=== PATIENT | male | born 1990 | race Caucasian/White ===

== ENCOUNTER 2016-09-29 16:56 | Emergency (ER) | payer OTHER ==
[2016-09-29 17:49] VITALS: TEMP 97.9
[2016-09-29] MEDS ORDERED: PROPARACAINE 0.5% OPHTH DROPS 15 ML BTL RIGHT EYE STA (18:18)
[2016-09-29] MEDS ORDERED: ERYTHROMYCIN 5 MG/GM OPHTH OINT 3.5 GM TUBE RIGHT EYE STA (18:59)
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
[2016-09-29 19:21] VITALS: BP 109/52; PULSE 75; RESP 14
== END 2016-09-29 19:22 | disposition home or self-care (01) ==
LOC: EC 16:56
DX: T15.02XA Foreign body in cornea, left eye, initial encounter (principal); E11.9 Type 2 diabetes mellitus without complications; Z79.4 Long term (current) use of insulin; Z88.5 Allergy status to narcotic agent; Y92.69 Other specified industrial and construction area as the place of occurrence of the external cause; Y99.0 Civilian activity done for income or pay
CPT/HCPCS: 65220; 99283

== ENCOUNTER 2017-03-02 22:36 | Emergency (ER) | payer OTHER ==
[2017-03-02] MEDS ORDERED: PENICILLIN V POTASSIUM 250 MG TAB PO STA (23:33)
[2017-03-02] MEDS ORDERED: traMADol 50 MG TAB PO STA (23:33)
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
--- NOTE | 2017-03-03 01:03 | CT ---
EXAM: CT Maxillofacial Without Intravenous Contrast CLINICAL HISTORY: Reason: Pain TECHNIQUE: Axial computed tomography images of the face without intravenous contrast. CTDI is 57.40 mGy and DLP is 1012.70 mGy-cm. This CT exam was performed using one or more of the following dose reduction techniques: automated exposure control, adjustment of the mA and/or kV according to patient size, and/or use of iterative reconstruction technique. COMPARISON: None FINDINGS: Bones/joints: No acute fracture. Soft tissues: Unremarkable. Orbits: Unremarkable. Sinuses: Mild mucosal thickening involving the left maxillary sinus, which may represent sinus disease. The remaining paranasal sinuses and mastoid and mastoid air cells are clear. IMPRESSION: Mild mucosal thickening involving the left maxillary sinus, which may represent sinus disease. Otherwise, unremarkable examination.
--- NOTE | 2017-03-03 01:07 | CT ---
Age: 26 years Gender: Male History: Pain Exam: CT HEAD Without Contrast Technique more: CTDI is 57.4 mGy and DLP is 1012.7 mGy-cm. Technique more: This CT exam was performed using one or more of the following dose reduction techniques: automated exposure control, adjustment of the mA and/or kV according to patient size, and/or use of iterative reconstruction technique. Comparison: None FINDINGS: No intracranial hemorrhage, abnormal intra- or extra-axial collections or parenchymal lesions are seen. The shape and configuration of the cortical sulci, basal cisterns and ventricles are within normal limits. The luna-white differentiation is preserved. No evidence of mass effect, midline shift, or edema. The osseous structures are unremarkable. The visualized portions of the paranasal sinuses are clear. IMPRESSION: Normal non-contrast CT scan of the head.
[2017-03-03 01:27] VITALS: BP 124/59; PULSE 83; RESP 19; TEMP 97.7
== END 2017-03-03 01:43 | disposition home or self-care (01) ==
LOC: EC 22:36
DX: S03.2XXA Dislocation of tooth, initial encounter (principal); S09.90XA Unspecified injury of head, initial encounter; E11.9 Type 2 diabetes mellitus without complications; Z79.4 Long term (current) use of insulin; Z88.5 Allergy status to narcotic agent; Y04.8XXA Assault by other bodily force, initial encounter; Y92.89 Other specified places as the place of occurrence of the external cause
CPT/HCPCS: 70450; 70486; 99284

== ENCOUNTER 2018-01-14 22:54 | Emergency (ER) | payer OTHER ==
[2018-01-14 22:58] VITALS: BP 107/67; PULSE 52; RESP 18; TEMP 98.4
--- NOTE | 2018-01-14 23:38 | ED ---
Skin/Abscess/FB HPI - General Chief complaint: Skin/Abscess/Foreign Body Stated complaint: Poison Lucille Time Seen by Provider: 01/14/18 23:28 Source: patient Mode of arrival: ambulatory Limitations: no limitations - History of Present Illness Initial comments: 27-year-old male patient presents to the emergency department today for evaluation of poison lucille dermatitis. Patient states that he was out in the [facility] with his family members on Wednesday. States that on Wednesday he developed a blistering type rash to his bilateral ankles. States that it then spread to his right forearm and wrist. The patient states that he has been keeping the areas clean and dry however the blisters on his ankles have opened due to rubbing on his work boots. Patient states he does have diabetes and is concerned about infection. Patient is requesting something to speed the healing of the poison lucille dermatitis. He denies any fevers or chills with this. He denies any drainage of pus from the wounds. States that his family members have similar symptoms as they did go to the same area of the [facility]. Patient denies any recent shortness breath, chest pain, abdominal pain, nausea, vomiting, diarrhea, constipation, back pain, numbness, tingling, dizziness, weakness, hematuria, dysuria, urinary urgency, urinary frequency, headache, visual changes, or any other complaints. - Related Data Home Medications Medication Instructions Recorded Confirmed Insulin Glulisine [Apidra] See Protocol SQ AC-TID PRN 03/11/16 03/02/17 Insulin Glargine [Lantus] 34 unit SQ HS 03/02/17 03/02/17 Previous Rx's Medication Instructions Recorded Penicillin V Potassium [Pen Vee K] 500 mg PO QID #28 tab 03/03/17 traMADol HCl [Ultram] 50 mg PO Q6H PRN #20 tab 03/03/17 Allergies Allergy/AdvReac Type Severity Reaction Status Date / Time codeine AdvReac Nausea & Verified 01/14/18 22:58 Vomiting Review of Systems ROS Statement: Those systems with pertinent positive or pertinent negative responses have been documented in the HPI. ROS Other: All systems not noted in ROS Statement are negative. 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 Past Psychological History: No Psychological Hx Reported Smoking Status: Never smoker Past Alcohol Use History: Occasional Past Drug Use History: None Reported - Past Family History Mother Family Medical History: Diabetes Mellitus Father Family Medical History: Sleep Apnea/CPAP/BIPAP Additional Family Medical History / Comment(s): severe alberto at 12, hepatitis C General Exam Limitations: no limitations General appearance: alert, in no apparent distress, other (This is a well- developed, well-nourished adult male patient in no acute distress. Vital signs upon presentation are temperature 98.4F, pulse 52, respirations 18, blood pressure 107/67, pulse ox 98% on room air.) Eye exam: Present: normal appearance, PERRL, EOMI. Absent: scleral icterus, conjunctival injection, periorbital swelling ENT exam: Present: normal exam, normal oropharynx, mucous membranes moist Respiratory exam: Present: normal lung sounds bilaterally. Absent: respiratory distress, wheezes, rales, rhonchi, stridor Cardiovascular Exam: Present: regular rate, normal rhythm, normal heart sounds. Absent: systolic murmur, diastolic murmur, rubs, gallop, clicks Neurological exam: Present: alert, oriented X3, CN II-XII intact Psychiatric exam: Present: normal affect, normal mood Skin exam: Present: warm, dry, intact, normal color, rash (She has multiple scab lesions noted over his bilateral ankles. Multiple scab lesions over the right forearm. No evidence of blistering or drainage from the wounds. No surrounding erythema.) Course Vital Signs 01/14/18 22:55 Temperature 98.4 F Pulse Rate 52 L Respiratory 18 Rate Blood Pressure 107/67 O2 Sat by Pulse 98 Oximetry Medical Decision Making - Medical Decision Making 27-year-old male patient presents to the emergency department today for evaluation of what he feels to be poison lucille. Physical examination was performed and did show multiple scab lesions over his bilateral ankles and his right forearm. Patient states that when the rash first appeared it was a blistering type rash consistent with poison lucille infection sees had in the past. Patient was concern for secondary infection. Lesions did not appear to be inflamed. There is no evidence of drainage or surrounding erythema. I did inform the patient that his symptoms seemed to be much improved and that he is healing as he should. Patient is instructed to keep these wounds clean and dry. He is instructed to follow-up with his primary care physician for recheck in 1-2 days. Return parameters discussed in detail. Disposition Clinical Impression: Poison lucille Disposition: HOME SELF-CARE Condition: Good Instructions: Poison Lucille (ED), Cold Compress or Soak (ED) Additional Instructions: Keep wounds clean and dry. Apply calamine lotion for symptom relief. Apply cool compresses for symptom relief. Follow-up with your primary care physician for recheck 1-2 days. Return here immediately for any new, worsening, or concerning symptoms. Is patient prescribed a controlled substance at d/c from ED?: No Referrals: None,Stated [Primary Care Provider] - 1-2 days Time of Disposition: 23:37
== END 2018-01-14 23:53 | disposition home or self-care (01) ==
LOC: EC 22:54
DX: L23.7 Allergic contact dermatitis due to plants, except food (principal); E11.9 Type 2 diabetes mellitus without complications; Z79.4 Long term (current) use of insulin; Z88.5 Allergy status to narcotic agent; Z83.3 Family history of diabetes mellitus
CPT/HCPCS: 99283

== ENCOUNTER 2018-03-05 22:02 | Emergency (ER) | payer OTHER ==
[2018-03-05 22:14] VITALS: BP 118/74; PULSE 68; RESP 18; TEMP 98.1
--- NOTE | 2018-03-05 23:11 | ED ---
Skin/Abscess/FB HPI - General Chief complaint: Skin/Abscess/Foreign Body Stated complaint: RASH Time Seen by Provider: 03/05/18 22:35 Source: patient Mode of arrival: ambulatory Limitations: no limitations - History of Present Illness Initial comments: 27 years old male presents with a rash on his genitals he noticed this rash yesterday he does work and now whether and now he thinks she could be a heat rash but is also concerned it could be something else it's not painful and slightly itching there is no tingling there is no discharge from his penis there is no fever there's no chills no open sores on his genitals - Related Data Home Medications Medication Instructions Recorded Confirmed Insulin Glulisine [Apidra] See Protocol SQ AC-TID PRN 03/11/16 03/05/18 Insulin Glargine [Lantus] 34 unit SQ HS 03/02/17 03/05/18 Allergies Allergy/AdvReac Type Severity Reaction Status Date / Time codeine AdvReac Nausea & Verified 03/05/18 22:14 Vomiting Review of Systems ROS Statement: Those systems with pertinent positive or pertinent negative responses have been documented in the HPI. ROS Other: All systems not noted in ROS Statement are negative. 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 Past Psychological History: No Psychological Hx Reported Smoking Status: Never smoker Past Alcohol Use History: Occasional Past Drug Use History: None Reported - Past Family History Mother Family Medical History: Diabetes Mellitus Father Family Medical History: Sleep Apnea/CPAP/BIPAP Additional Family Medical History / Comment(s): severe alberto at 12, hepatitis C General Exam - General Exam Comments Initial Comments: General: The patient is awake and alert, in no distress, and does not appear acutely ill. Skin: Skin is warm and dry disturbance of her home small vesicle-like lesions on now shaft of his penis approximately doesn't quite look like herpes at this point, since very early stage is a circumcised male without discharge noticed from the meatus 100 noticed some skin discoloration on the side of his shaft testes is descended bilaterally no lymphadenopathy noticed Eye: Pupils are equal, round and reactive to light, extra-ocular movements are intact; there is normal conjunctiva bilaterally. Ears, nose, mouth and throat: There are moist mucous membranes and no oral lesions. Neck: The neck is supple, there is no tenderness or JVD. Cardiovascular: There is a regular rate and rhythm. No murmur, rub or gallop is appreciated. Respiratory: To auscultation bilateral, no wheezing no rhonchi no distress respiratory deluca noticed Gastrointestinal: Soft, non-distended, non-tender abdomen without masses or organomegaly noted. There is no rebound or guarding present. Bowel sounds are unremarkable. Back: There is no tenderness to palpation in the midline. There is no obvious deformity. Musculoskeletal: Normal ROM, no tenderness, There is no pedal edema. There is no calf tenderness or swelling. No cords were appreciated. Neurological: CN II-XII intact, Cranial nerves III through XII are intact. There are no obvious motor or sensory deficits. Coordination appears grossly intact. Speech is normal. Psychiatric: Cooperative, appropriate mood & affect, normal judgment. Limitations: no limitations Course Vital Signs 03/05/18 22:12 Temperature 98.1 F Pulse Rate 68 Respiratory 18 Rate Blood Pressure 118/74 O2 Sat by Pulse 100 Oximetry I'm concerned about her early stages of firm herpes or herpetic lesions on his genitals swab was done was a herpes identification, education and counseling was done over 10 minutes for the safe sexual practices and he was advised to follow-up with his family doctor or return back to the ER if symptoms get worse Disposition Clinical Impression: Skin rash Disposition: HOME SELF-CARE Condition: Good Instructions: Acute Rash (ED) Is patient prescribed a controlled substance at d/c from ED?: No Referrals: Fred Pascual MD [Primary Care Provider] - 1-2 days
== END 2018-03-05 23:21 | disposition home or self-care (01) ==
LOC: EC 22:02
DX: R21 Rash and other nonspecific skin eruption (principal); E11.9 Type 2 diabetes mellitus without complications; Z79.4 Long term (current) use of insulin; Z88.5 Allergy status to narcotic agent
CPT/HCPCS: 87529; 99283

== ENCOUNTER → 2018-03-31 | Outpatient (CLI) | payer OTHER ==
--- NOTE | 2018-03-31 15:04 | XR ---
EXAMINATION TYPE: XR shoulder complete LT DATE OF EXAM: 03/31/2018 CLINICAL HISTORY: Left shoulder pain after injury TECHNIQUE: Three views of the left shoulder are obtained. COMPARISON: None. FINDINGS: There is no acute fracture/dislocation evident in the left shoulder. The acromioclavicula r and glenohumeral joint spaces appear within normal limits. The visualized ribs are intact and unre markable. IMPRESSION: There is no acute fracture or dislocation in the left shoulder.
== END | disposition home or self-care (01) ==
LOC: RADXRMAIN 14:29
PROVIDERS: ATTEND Midwife
DX: M25.512 Pain in left shoulder (principal)

== ENCOUNTER 2018-07-03 13:21 | Emergency (ER) | payer OTHER ==
[2018-07-03 13:35] VITALS: BP 103/65; PULSE 89; RESP 18; TEMP 98
--- NOTE | 2018-07-03 14:20 | ED ---
General Adult HPI - General Chief complaint: Skin/Abscess/Foreign Body Stated complaint: Lip Infection Source: patient, RN notes reviewed Mode of arrival: ambulatory Limitations: no limitations - History of Present Illness Initial comments: 27-year-old male presents to the emergency department for a chief complaint of rash and lip 3 days. Patient denies any itchiness or pain to the rash. He denies any burning. He denies ever having cold sores before. Patient denies fevers or chills. He denies rashes anywhere else. He states he did receive his childhood immunizations. Patient states he also needs a refill for his Lantus. He states his glucose has been controlled. He states Dr. 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 Patient has no other complaints at this time including shortness of breath, chest pain, abdominal pain, nausea or vomiting, headache, or visual changes. - Related Data Home Medications Medication Instructions Recorded Confirmed Insulin Glulisine [Apidra] See Protocol SQ AC-TID PRN 03/11/16 03/05/18 Insulin Glargine [Lantus] 34 unit SQ HS 03/02/17 03/05/18 Previous Rx's Medication Instructions Recorded Insulin Glargine,Hum.rec.anlog 34 unit SQ HS 20 Days ml 07/03/18 [Lantus Solostar] Mupirocin 2% Oint [Bactroban 2% 1 applic TOPICAL TID 7 Days gm 07/03/18 Oint] Allergies Allergy/AdvReac Type Severity Reaction Status Date / Time codeine AdvReac Nausea & Verified 07/03/18 13:35 Vomiting Review of Systems ROS Statement: Those systems with pertinent positive or pertinent negative responses have been documented in the HPI. ROS Other: All systems not noted in ROS Statement are negative. 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 Past Psychological History: No Psychological Hx Reported Smoking Status: Never smoker Past Alcohol Use History: Occasional Past Drug Use History: None Reported - Past Family History Mother Family Medical History: Diabetes Mellitus Father Family Medical History: Sleep Apnea/CPAP/BIPAP Additional Family Medical History / Comment(s): severe alberto at 12, hepatitis C General Exam Limitations: no limitations General appearance: alert, in no apparent distress Head exam: Present: atraumatic, normocephalic, normal inspection Eye exam: Present: normal appearance, PERRL, EOMI. Absent: scleral icterus, conjunctival injection, periorbital swelling ENT exam: Present: normal exam, normal oropharynx, mucous membranes moist, TM's normal bilaterally, normal external ear exam, other (Small area of erythema and yellow crusting noted to the left lower lip) Neck exam: Present: normal inspection, full ROM. Absent: tenderness, meningismus, lymphadenopathy Respiratory exam: Present: normal lung sounds bilaterally. Absent: respiratory distress, wheezes, rales, rhonchi, stridor Cardiovascular Exam: Present: regular rate, normal rhythm, normal heart sounds. Absent: systolic murmur, diastolic murmur, rubs, gallop, clicks Neurological exam: Present: alert, oriented X3, CN II-XII intact Psychiatric exam: Present: normal affect, normal mood Skin exam: Present: warm, dry, intact, normal color. Absent: rash Course Vital Signs 07/03/18 13:32 Temperature 98 F Pulse Rate 89 Respiratory 18 Rate Blood Pressure 103/65 O2 Sat by Pulse 98 Oximetry Medical Decision Making - Medical Decision Making 27-year-old male with a past medical history of type 1 diabetes presents to the emergency department for a chief complaint of rash on the lower lip 3 days. He denies pruritus, pain, burning sensation. Patient states he has never had a cold sore before. He denies fevers or chills. He denies generalized rash. He states he is up-to-date on immunizations. On exam patient has erythema noted of the left lower lip. There is yellow crusting noted. Rash appears consistent with impetigo. Patient will be treated with Dr. Bear. Patient is also a type I diabetic. He states his sugars have been controlled. He refuses a glucose check at this time but states he needs a refill of his Lantus. He states Dr. Pascual manages this that he is trying to get into an accelerator operator. Patient will be given a refill. He will follow up with Dr. Pascual on Wednesday for this rash as well as additional medication refills. He can aware to return here if he has any worsening symptoms. Disposition Clinical Impression: Rash, Medication refill Disposition: HOME SELF-CARE Condition: Good Instructions: Impetigo (ED), Insulin Glargine (By injection) Additional Instructions: Please use ointment as directed. Please follow-up with your primary care provider for recheck of the rash as well as medication refill and 1-2 days. Please return if you have any worsening symptoms. Prescriptions: Insulin Glargine,Hum.rec.anlog [Lantus Solostar] 34 unit SQ HS 20 Days ml Mupirocin 2% Oint [Bactroban 2% Oint] 1 applic TOPICAL TID 7 Days gm Is patient prescribed a controlled substance at d/c from ED?: No Referrals: Fred Pascual MD [Primary Care Provider] - 1-2 days Time of Disposition: 14:20
== END 2018-07-03 14:50 | disposition home or self-care (01) ==
LOC: EC 13:21
DX: R21 Rash and other nonspecific skin eruption (principal); Z76.0 Encounter for issue of repeat prescription; E11.9 Type 2 diabetes mellitus without complications; Z79.4 Long term (current) use of insulin; Z88.5 Allergy status to narcotic agent
CPT/HCPCS: 99283

== ENCOUNTER → 2018-07-13 | Outpatient (CLI) | payer OTHER ==
--- NOTE | 2018-07-13 10:42 | US ---
EXAMINATION TYPE: US venous doppler duplex LE DATE OF EXAM: 07/13/2018 9:39 AM COMPARISON: NONE CLINICAL HISTORY: R22.42 left lower limb, R22.41 right lower limb swelling. SIDE PERFORMED: Bilateral TECHNIQUE: The lower extremity deep venous system is examined utilizing real time linear array sonog margie with graded compression, doppler sonography and color-flow sonography. VESSELS IMAGED: External Iliac Vein (EIV) Common Femoral Vein Deep Femoral Vein Greater Saphenous Vein * Femoral Vein Popliteal Vein Small Saphenous Vein * Proximal Calf Veins (* superficial vessels) Right Leg: Appears negative for DVT Left Leg: Appears negative for DVT 3 palpable areas felt by patient on back of thighs and left calf all appear to be lipomas. They wer e hyperechoic, compressible and all 2cm or less in size. IMPRESSION: No evidence for DVT at this time.
== END | disposition home or self-care (01) ==
LOC: RADUSWWP 09:35
PROVIDERS: ATTEND Midwife
DX: I80.9 Phlebitis and thrombophlebitis of unspecified site (principal)
CPT/HCPCS: 93970

== ENCOUNTER 2018-09-11 00:26 | Emergency (ER) | payer OTHER ==
[2018-09-11 00:44] LABS: Glucose,Whole Blood 446 mg/dL (75-99)
[2018-09-11 02:19] LABS: Appearance,Urine Clear (Clear); Bilirubin,Urine Negative (Negative); Blood,Urine Negative (Negative); Color,Urine Colorless; Glucose,Urine (UA) 4+ (Negative); Ketones,Urine Negative (Negative); Leukocyte Esterase,Urine Negative (Negative); Nitrite,Urine Negative (Negative); Protein,Urine Negative (Negative); Urobilinogen,Urine <2.0 mg/dL (<2.0)
[2018-09-11 02:20] LABS: Basophils % (A) 0 %; Eosinophils # (A) 0.1 k/uL (0-0.7); Eosinophils % (A) 1 %; HCT 42.7 % (39.0-53.0); HGB 14.2 gm/dL (13.0-17.5); Lymphocytes # (A) 1.1 k/uL (1.0-4.8); Lymphocytes % (A) 11 %; MCH 30.7 pg (25.0-35.0); MCHC 33.3 g/dL (31.0-37.0); Mean Platelet Volume 6.8; Monocytes # (A) 0.2 k/uL (0-1.0); Monocytes % (A) 2 %; Neutrophils # (A) 8.7 k/uL (1.3-7.7); Neutrophils % (A) 85 %; Platelet Count 237 k/uL (150-450); RBC 4.64 m/uL (4.30-5.90); RDW 12.2 % (11.5-15.5); WBC 10.2 k/uL (3.8-10.6)
[2018-09-11 02:30] LABS: ALT 40 U/L (21-72); AST 30 U/L (17-59); Albumin 4.2 g/dL (3.5-5.0); Alkaline Phosphatase 78 U/L (38-126); Anion Gap 12 mmol/L; Blood Urea Nitrogen 16 mg/dL (9-20); Calcium 8.8 mg/dL (8.4-10.2); Carbon Dioxide 23 mmol/L (22-30); Chloride 103 mmol/L (98-107); Glucose 462 mg/dL (74-99); Sodium 138 mmol/L (137-145); Total Bilirubin 0.6 mg/dL (0.2-1.3); Total Protein 6.6 g/dL (6.3-8.2)
--- NOTE | 2018-09-11 02:30 | XR ---
EXAMINATION TYPE: XR chest 1V portable DATE OF EXAM: 09/11/2018 COMPARISON: 03/11/2016 HISTORY: Fall. Pain TECHNIQUE: Single frontal view of the chest is obtained. FINDINGS: There are chest leads. Bony thorax is intact. IMPRESSION: No active cardiopulmonary disease. No change. No pneumothorax.
[2018-09-11 02:39] LABS: Amphetamine Screen,Urine Not Detected (NotDetected); Barbiturate Screen,Urine Not Detected (NotDetected); Benzodiazepines Screen,Urine Not Detected (NotDetected); Cocaine Screen,Urine Not Detected (NotDetected); Methadone Screen, Urine Not Detected (NotDetected); Opiate Screen,Urine Not Detected (NotDetected); Oxycodone Screen, Urine Not Detected (NotDetected); Phencyclidine Screen,Urine Not Detected (NotDetected); Tricyclic Antidepressant,Urine Not Detected (NotDetected); Urn Cannabinoid Scrn Not Detected (NotDetected)
[2018-09-11 02:45] LABS: Alcohol 201 mg/dL
[2018-09-11 02:49] LABS: Creatine Kinase 189 U/L (55-170)
--- NOTE | 2018-09-11 03:00 | CT ---
EXAMINATION TYPE: CT facial bones wo con DATE OF EXAM: 09/11/2018 COMPARISON: 03/03/2017 HISTORY: ETOH, fall;evaluate for trauma Pain CT DLP: DLP 1039.7 mGycm Automated exposure control for dose reduction was used. TECHNIQUE: CT scan of the sinuses is performed without contrast, axial images are obtained, coronal r eformatted images are also reviewed. FINDINGS: The orbital margins are intact. The there is no evidence of a blowout fracture. Maxilla is intact. Mandibular ring appears intact. Zygomatic arches appear normal. There is no evidence of retro -orbital mass. Nasal bone appears intact. There is fairly normal aeration of the paranasal sinuses. IMPRESSION: Negative CT scan of the facial bones. No fracture. There is clearing of the left maxillar y sinusitis compared to old exam.
[2018-09-11 03:02] LABS: Creatine Kinase MB 1.9 ng/mL (0.0-2.4); Troponin I <0.012 ng/mL (0.000-0.034)
--- NOTE | 2018-09-11 03:03 | CT ---
EXAMINATION TYPE: CT brain mark wo con DATE OF EXAM: 09/11/2018 COMPARISON: CT brain 03/03/2017 HISTORY: ETOH, fall;evaluate for trauma CT DLP: 1039.7 mGycm Automated exposure control for dose reduction was used. TECHNIQUE: CT scan of the head and cervical spine are performed without contrast. FINDINGS: Ventricles and sulci appear normal. There is no mass effect nor midline shift. There is n o sign of intracranial hemorrhage. The calvarium is intact. The cervical vertebra have normal spacing and alignment. Posterior elements are intact. Facet joints appear normal. The skull base is intact. Prevertebral soft tissues appear normal. IMPRESSION: Normal CT scan of the brain. Normal CT scan cervical spine.
[2018-09-11] MEDS ORDERED: SODIUM CHLORIDE 0.9% 1,000 ML IV ONE (03:08)
[2018-09-11] MEDS ORDERED: INSULIN REGULAR 100 UNIT/ML VIAL SQ STA (03:08)
[2018-09-11] MEDS ORDERED: INSULIN DETEMIR 100 UNIT/ML 10 ML VIAL SQ STA (03:08)
[2018-09-11 03:12] LABS: INR 0.9 (<1.2)
--- NOTE | 2018-09-11 03:13 | ED ---
Altered Mental Status HPI - General Chief Complaint: Altered Mental Status Stated Complaint: ETOH Time Seen by Provider: 09/11/18 02:18 Source: patient Mode of arrival: ambulatory Limitations: altered mental status - History of Present Illness Initial Comments: This patient is 27-year-old man brought to be evaluate for altered mental status. The patient had reportedly been drinking and then had become confused and disoriented. The patient does admit to drinking "a lot" tonight. The patient denies any other medical complaints. He admits to not taking his dose of insulin tonight. Complaint: confusion, intoxication -: minutes(s) Severity: moderate Context: alcohol abuse, diabetes Associated Symptoms: denies other symptoms - Related Data Home Medications Medication Instructions Recorded Confirmed Insulin Glulisine [Apidra] See Protocol SQ AC-TID PRN 03/11/16 03/05/18 Insulin Glargine [Lantus] 34 unit SQ HS 03/02/17 03/05/18 Previous Rx's Medication Instructions Recorded Insulin Glargine,Hum.rec.anlog 34 unit SQ HS 20 Days ml 07/03/18 [Lantus Solostar] Mupirocin 2% Oint [Bactroban 2% 1 applic TOPICAL TID 7 Days gm 07/03/18 Oint] Allergies Allergy/AdvReac Type Severity Reaction Status Date / Time codeine AdvReac Nausea & Verified 09/11/18 00:58 Vomiting Review of Systems ROS Statement: Those systems with pertinent positive or pertinent negative responses have been documented in the HPI. ROS Other: All systems not noted in ROS Statement are negative. Constitutional: Denies: fever, chills, weakness Respiratory: Denies: cough, dyspnea Cardiovascular: Denies: chest pain, palpitations, syncope Gastrointestinal: Reports: nausea. Denies: abdominal pain, diarrhea, hematemesis Genitourinary: Denies: dysuria, hematuria Musculoskeletal: Denies: back pain Skin: Denies: rash Neurological: Reports: confusion. 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 Past Psychological History: No Psychological Hx Reported Smoking Status: Never smoker Past Alcohol Use History: Occasional Past Drug Use History: None Reported - Past Family History Mother Family Medical History: Diabetes Mellitus Father Family Medical History: Sleep Apnea/CPAP/BIPAP Additional Family Medical History / Comment(s): severe alberto at 12, hepatitis C General Exam Limitations: altered mental status General appearance: alert, in no apparent distress Head exam: Present: atraumatic. Absent: normocephalic Eye exam: Present: normal appearance. Absent: scleral icterus, conjunctival injection ENT exam: Present: normal oropharynx, TM's normal bilaterally, normal external ear exam, other (The patient had does have some dried blood to the right naris. No acute bleeding. Patient denies tenderness to palpation of the facial bones. No septal hematoma.) Neck exam: Present: normal inspection, full ROM. Absent: tenderness Respiratory exam: Present: normal lung sounds bilaterally. Absent: respiratory distress, wheezes, rales, rhonchi, stridor Cardiovascular Exam: Present: regular rate, normal rhythm, normal heart sounds. Absent: systolic murmur, diastolic murmur, rubs, gallop GI/Abdominal exam: Present: soft. Absent: distended, tenderness, guarding, rebound, mass Neurological exam: Present: alert, oriented X3, CN II-XII intact, other (Speech with mild slurring. Patient mildly ataxic). Absent: motor sensory deficit Skin exam: Present: warm, dry, intact, normal color. Absent: rash Course Vital Signs 09/11/18 09/11/18 09/11/18 00:33 02:40 03:46 Temperature 98.4 F Pulse Rate 79 88 94 Respiratory 17 12 18 Rate Blood Pressure 110/71 118/75 112/66 O2 Sat by Pulse 100 97 98 Oximetry 09/11/18 09/11/18 05:45 06:43 Temperature 98.3 F Pulse Rate 92 93 Respiratory 16 18 Rate Blood Pressure 109/52 109/55 O2 Sat by Pulse 95 95 Oximetry Medical Decision Making - Medical Decision Making This patient is 27-year-old man presenting with altered mental status. He is found to be markedly intoxicated. His workup also reveals hyperglycemia, poorly controlled diabetes. Patient was given fluids and insulin and has his alcohol level decreased he became appropriately oriented. Patient's family is available and will take him home he is not driving isn't toxic is state. We discussed appropriate care of his diabetes and he'll follow-up. - Lab Data Result diagrams: 09/11/18 01:59 09/11/18 01:59 Lab Results 09/11/18 09/11/18 09/11/18 Range/Units 00:32 01:00 01:59 WBC (3.8-10.6) k/uL RBC (4.30-5.90) m/uL Hgb (13.0-17.5) gm/dL Hct (39.0-53.0) % MCV (80.0-100.0) fL MCH (25.0-35.0) pg MCHC (31.0-37.0) g/dL RDW (11.5-15.5) % Plt Count (150-450) k/uL Neutrophils % % Lymphocytes % % Monocytes % % Eosinophils % % Basophils % % Neutrophils # (1.3-7.7) k/uL Lymphocytes # (1.0-4.8) k/uL Monocytes # (0-1.0) k/uL Eosinophils # (0-0.7) k/uL Basophils # (0-0.2) k/uL PT (9.0-12.0) sec INR (<1.2) APTT (22.0-30.0) sec Sodium 138 (137-145) mmol/L Potassium 5.0 (3.5-5.1) mmol/L Chloride 103 (98-107) mmol/L Carbon Dioxide 23 (22-30) mmol/L Anion Gap 12 mmol/L BUN 16 (9-20) mg/dL Creatinine 0.77 (0.66-1.25) mg/dL Est GFR (CKD-EPI)AfAm >90 (>60 ml/min/1.73 sqM) Est GFR (CKD-EPI)NonAf >90 (>60 ml/min/1.73 sqM) Glucose 462 H (74-99) mg/dL POC Glucose (mg/dL) 446 H (75-99) mg/dL POC Glu Bpm Solution Architect ID Ame Avery Calcium 8.8 (8.4-10.2) mg/dL Total Bilirubin 0.6 (0.2-1.3) mg/dL AST 30 (17-59) U/L ALT 40 (21-72) U/L Alkaline Phosphatase 78 (38-126) U/L Total Creatine Kinase (55-170) U/L CK-MB (CK-2) (0.0-2.4) ng/mL CK-MB (CK-2) Rel Index Troponin I (0.000-0.034) ng/mL Total Protein 6.6 (6.3-8.2) g/dL Albumin 4.2 (3.5-5.0) g/dL Urine Color Colorless Urine Appearance Clear (Clear) Urine pH 5.0 (5.0-8.0) Ur Specific Sumner 1.020 (1.001-1.035) Urine Protein Negative (Negative) Urine Glucose (UA) 4+ H (Negative) Urine Ketones Negative (Negative) Urine Blood Negative (Negative) Urine Nitrite Negative (Negative) Urine Bilirubin Negative (Negative) Urine Urobilinogen <2.0 (<2.0) mg/dL Ur Leukocyte Esterase Negative (Negative) Urine Opiates Screen Not Detected (NotDetected) Ur Oxycodone Screen Not Detected (NotDetected) Urine Methadone Screen Not Detected (NotDetected) Ur Propoxyphene Screen Not Detected (NotDetected) Ur Barbiturates Screen Not Detected (NotDetected) U Tricyclic Antidepress Not Detected (NotDetected) Ur Phencyclidine Scrn Not Detected (NotDetected) Ur Amphetamines Screen Not Detected (NotDetected) U Methamphetamines Scrn Not Detected (NotDetected) U Benzodiazepines Scrn Not Detected (NotDetected) Urine Cocaine Screen Not Detected (NotDetected) U Marijuana (THC) Screen Not Detected (NotDetected) Serum Alcohol 201 H* mg/dL Acetone, Qual Negative (Negative) 09/11/18 09/11/18 09/11/18 Range/Units 01:59 01:59 01:59 WBC 10.2 (3.8-10.6) k/uL RBC 4.64 (4.30-5.90) m/uL Hgb 14.2 (13.0-17.5) gm/dL Hct 42.7 (39.0-53.0) % MCV 92.0 (80.0-100.0) fL MCH 30.7 (25.0-35.0) pg MCHC 33.3 (31.0-37.0) g/dL RDW 12.2 (11.5-15.5) % Plt Count 237 (150-450) k/uL Neutrophils % 85 % Lymphocytes % 11 % Monocytes % 2 % Eosinophils % 1 % Basophils % 0 % Neutrophils # 8.7 H (1.3-7.7) k/uL Lymphocytes # 1.1 (1.0-4.8) k/uL Monocytes # 0.2 (0-1.0) k/uL Eosinophils # 0.1 (0-0.7) k/uL Basophils # 0.0 (0-0.2) k/uL PT 10.0 (9.0-12.0) sec INR 0.9 (<1.2) APTT 20.8 L (22.0-30.0) sec Sodium (137-145) mmol/L Potassium (3.5-5.1) mmol/L Chloride (98-107) mmol/L Carbon Dioxide (22-30) mmol/L Anion Gap mmol/L BUN (9-20) mg/dL Creatinine (0.66-1.25) mg/dL Est GFR (CKD-EPI)AfAm (>60 ml/min/1.73 sqM) Est GFR (CKD-EPI)NonAf (>60 ml/min/1.73 sqM) Glucose (74-99) mg/dL POC Glucose (mg/dL) (75-99) mg/dL POC Glu Bpm Solution Architect ID Calcium (8.4-10.2) mg/dL Total Bilirubin (0.2-1.3) mg/dL AST (17-59) U/L ALT (21-72) U/L Alkaline Phosphatase (38-126) U/L Total Creatine Kinase 189 H (55-170) U/L CK-MB (CK-2) 1.9 (0.0-2.4) ng/mL CK-MB (CK-2) Rel Index 1.0 Troponin I <0.012 (0.000-0.034) ng/mL Total Protein (6.3-8.2) g/dL Albumin (3.5-5.0) g/dL Urine Color Urine Appearance (Clear) Urine pH (5.0-8.0) Ur Specific Sumner (1.001-1.035) Urine Protein (Negative) Urine Glucose (UA) (Negative) Urine Ketones (Negative) Urine Blood (Negative) Urine Nitrite (Negative) Urine Bilirubin (Negative) Urine Urobilinogen (<2.0) mg/dL Ur Leukocyte Esterase (Negative) Urine Opiates Screen (NotDetected) Ur Oxycodone Screen (NotDetected) Urine Methadone Screen (NotDetected) Ur Propoxyphene Screen (NotDetected) Ur Barbiturates Screen (NotDetected) U Tricyclic Antidepress (NotDetected) Ur Phencyclidine Scrn (NotDetected) Ur Amphetamines Screen (NotDetected) U Methamphetamines Scrn (NotDetected) U Benzodiazepines Scrn (NotDetected) Urine Cocaine Screen (NotDetected) U Marijuana (THC) Screen (NotDetected) Serum Alcohol mg/dL Acetone, Qual (Negative) 09/11/18 09/11/18 09/11/18 Range/Units 04:21 04:58 05:55 WBC (3.8-10.6) k/uL RBC (4.30-5.90) m/uL Hgb (13.0-17.5) gm/dL Hct (39.0-53.0) % MCV (80.0-100.0) fL MCH (25.0-35.0) pg MCHC (31.0-37.0) g/dL RDW (11.5-15.5) % Plt Count (150-450) k/uL Neutrophils % % Lymphocytes % % Monocytes % % Eosinophils % % Basophils % % Neutrophils # (1.3-7.7) k/uL Lymphocytes # (1.0-4.8) k/uL Monocytes # (0-1.0) k/uL Eosinophils # (0-0.7) k/uL Basophils # (0-0.2) k/uL PT (9.0-12.0) sec INR (<1.2) APTT (22.0-30.0) sec Sodium (137-145) mmol/L Potassium (3.5-5.1) mmol/L Chloride (98-107) mmol/L Carbon Dioxide (22-30) mmol/L Anion Gap mmol/L BUN (9-20) mg/dL Creatinine (0.66-1.25) mg/dL Est GFR (CKD-EPI)AfAm (>60 ml/min/1.73 sqM) Est GFR (CKD-EPI)NonAf (>60 ml/min/1.73 sqM) Glucose (74-99) mg/dL POC Glucose (mg/dL) 337 H 368 H 144 H (75-99) mg/dL POC Glu Bpm Solution Architect Michelle Ramos Michelle Ontiveros Michelle Calcium (8.4-10.2) mg/dL Total Bilirubin (0.2-1.3) mg/dL AST (17-59) U/L ALT (21-72) U/L Alkaline Phosphatase (38-126) U/L Total Creatine Kinase (55-170) U/L CK-MB (CK-2) (0.0-2.4) ng/mL CK-MB (CK-2) Rel Index Troponin I (0.000-0.034) ng/mL Total Protein (6.3-8.2) g/dL Albumin (3.5-5.0) g/dL Urine Color Urine Appearance (Clear) Urine pH (5.0-8.0) Ur Specific Sumner (1.001-1.035) Urine Protein (Negative) Urine Glucose (UA) (Negative) Urine Ketones (Negative) Urine Blood (Negative) Urine Nitrite (Negative) Urine Bilirubin (Negative) Urine Urobilinogen (<2.0) mg/dL Ur Leukocyte Esterase (Negative) Urine Opiates Screen (NotDetected) Ur Oxycodone Screen (NotDetected) Urine Methadone Screen (NotDetected) Ur Propoxyphene Screen (NotDetected) Ur Barbiturates Screen (NotDetected) U Tricyclic Antidepress (NotDetected) Ur Phencyclidine Scrn (NotDetected) Ur Amphetamines Screen (NotDetected) U Methamphetamines Scrn (NotDetected) U Benzodiazepines Scrn (NotDetected) Urine Cocaine Screen (NotDetected) U Marijuana (THC) Screen (NotDetected) Serum Alcohol mg/dL Acetone, Qual (Negative) Disposition Clinical Impression: Alcoholic intoxication, Hyperglycemia Disposition: HOME SELF-CARE Condition: Good Instructions (If sedation given, give patient instructions): Alcohol Intoxication (ED), Diabetic Hyperglycemia (ED) Is patient prescribed a controlled substance at d/c from ED?: No Referrals: None,Stated [REFERRING] - 1-2 days
[2018-09-11 04:23] LABS: Glucose,Whole Blood 337 mg/dL (75-99)
[2018-09-11 04:36] LABS: Partial Thromboplastin Time 20.8 sec (22.0-30.0)
[2018-09-11 05:00] LABS: Glucose,Whole Blood 368 mg/dL (75-99)
[2018-09-11] MEDS ORDERED: SODIUM CHLORIDE 0.9% 2,000 ML IV ONE (05:36)
[2018-09-11 05:57] LABS: Glucose,Whole Blood 144 mg/dL (75-99)
[2018-09-11 06:45] VITALS: BP 109/55; PULSE 93; RESP 18; TEMP 98.3
== END 2018-09-11 06:48 | disposition home or self-care (01) ==
LOC: EC 00:26
DX: F10.129 Alcohol abuse with intoxication, unspecified (principal); E11.65 Type 2 diabetes mellitus with hyperglycemia; Z83.3 Family history of diabetes mellitus; Z79.4 Long term (current) use of insulin; Z88.5 Allergy status to narcotic agent; Z53.8 Procedure and treatment not carried out for other reasons
CPT/HCPCS: 36415; 70450; 70486; 71045; 72125; 80053; 80306; 80320; 81003; 82009; 82550; 82553; 84484; 85025; 85610; 85730; 93005; 96360; 99285

== ENCOUNTER → 2018-11-02 | Outpatient (CLI) | payer OTHER ==
--- NOTE | 2018-11-02 15:54 | XR ---
EXAMINATION TYPE: XR shoulder complete RT DATE OF EXAM: 11/02/2018 CLINICAL HISTORY: Pain after hockey injury. TECHNIQUE: Three views of the right shoulder are obtained. COMPARISON: None. FINDINGS: There is no acute fracture/dislocation evident in the right shoulder. The acromioclavicul ar and glenohumeral joint spaces appear within normal limits. The visualized ribs are intact and unr emarkable. IMPRESSION: There is no acute fracture or dislocation in the right shoulder.
--- NOTE | 2018-11-02 15:55 | XR ---
EXAMINATION TYPE: XR cervical spine comp DATE OF EXAM: 11/02/2018 TECHNIQUE: Frontal, lateral, oblique, swimmers, and open mouth view of the cervical spine are obtaine d. HISTORY: S16.1XXA strain of muscle hockey injury with neck pain COMPARISON: CT cervical spine September 11, 2018 FINDINGS: The cervical spine is visualized in its entirety from C1 thru the top of T1 level, it show s persistent straightened alignment without evidence of acute fracture or dislocation. The pre-verte bral soft tissue appears within normal limits. The C1-C2 articulation is slightly suboptimally evalu ated despite several attempts at open mouth view due to osseous overlap. Vertebral body heights and disc space heights are maintained. The oblique images are within normal limits. Overlying soft tissue is unremarkable. IMPRESSION: No acute fracture or dislocation is seen in the cervical spine.
== END ==
LOC: RADXRMAIN 15:26
PROVIDERS: ATTEND Physician Assistant
DX: S16.1XXA Strain of muscle, fascia and tendon at neck level, initial encounter (principal); M25.519 Pain in unspecified shoulder
CPT/HCPCS: 72050

== ENCOUNTER 2019-05-10 00:11 | Emergency (ER) | payer OTHER ==
[2019-05-10 00:20] VITALS: BP 115/75; PULSE 71; RESP 18; TEMP 97.9
--- NOTE | 2019-05-10 00:45 | ED ---
ENT HPI - General Chief complaint: ENT Stated complaint: jaw pain Time Seen by Provider: 05/10/19 00:21 Source: patient, RN notes reviewed Mode of arrival: ambulatory Limitations: no limitations - History of Present Illness Initial comments: 28-year-old male present emergency department with chief complaint right-sided mandibular pain. Patient states has been going on for last 6-7 days did see his primary care physician felt may be related to a dental infection was started on pen VK. Patient states that has not helped. He has been taken Tylenol Motrin with minimal relief. No fevers or chills. He does admit that he has some clicking and popping in his jaw and he states it hurts worse when he bites down. Patient denies any neck pain, dizziness no trauma no fever or chills. - Related Data Home Medications Medication Instructions Recorded Confirmed Insulin Glulisine [Apidra] See Protocol SQ AC-TID PRN 03/11/16 03/05/18 Insulin Glargine [Lantus] 34 unit SQ HS 03/02/17 03/05/18 Previous Rx's Medication Instructions Recorded Insulin Glargine,Hum.rec.anlog 34 unit SQ HS 20 Days ml 07/03/18 [Lantus Solostar] Mupirocin 2% Oint [Bactroban 2% 1 applic TOPICAL TID 7 Days gm 07/03/18 Oint] Ibuprofen [Motrin] 600 mg PO Q8HR PRN #30 tab 05/10/19 Allergies Allergy/AdvReac Type Severity Reaction Status Date / Time codeine AdvReac Nausea & Verified 05/10/19 00:20 Vomiting Review of Systems ROS Statement: Those systems with pertinent positive or pertinent negative responses have been documented in the HPI. ROS Other: All systems not noted in ROS Statement are negative. 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 Past Psychological History: No Psychological Hx Reported Smoking Status: Never smoker Past Alcohol Use History: Occasional Past Drug Use History: Marijuana - Past Family History Mother Family Medical History: Diabetes Mellitus Father Family Medical History: Sleep Apnea/CPAP/BIPAP Additional Family Medical History / Comment(s): severe alberto at 12, hepatitis C General Exam Limitations: no limitations General appearance: alert, in no apparent distress Head exam: Present: atraumatic, normocephalic, normal inspection Eye exam: Present: normal appearance, PERRL, EOMI. Absent: scleral icterus, conjunctival injection, periorbital swelling ENT exam: Present: mucous membranes moist, TM's normal bilaterally, normal external ear exam. Absent: normal oropharynx (Pain with opening closing, not able clicking and tenderness over the right TMJ region there is a dental fracture dental Kiara right lower no erythema no abscess) Neck exam: Present: normal inspection, full ROM. Absent: tenderness, meningismus, lymphadenopathy Respiratory exam: Present: normal lung sounds bilaterally. Absent: respiratory distress, wheezes, rales, rhonchi, stridor Cardiovascular Exam: Present: regular rate, normal rhythm, normal heart sounds. Absent: systolic murmur, diastolic murmur, rubs, gallop, clicks Neurological exam: Present: alert, oriented X3, CN II-XII intact Skin exam: Present: warm, dry, intact, normal color. Absent: rash Course Vital Signs 05/10/19 00:18 Temperature 97.9 F Pulse Rate 71 Respiratory 18 Rate Blood Pressure 115/75 O2 Sat by Pulse 100 Oximetry Medical Decision Making - Medical Decision Making 28-year-old male presented from it for right-sided mandibular pain. Do believe his symptoms related to TMJ. Patient had x-ray which is unremarkable. Patient has been treated for infection. Patient will be discharged at this time is advised of follow-up with oral surgery and to wear bite splint. Disposition Clinical Impression: Temporal mandibular joint disorder Disposition: HOME SELF-CARE Condition: Stable Instructions (If sedation given, give patient instructions): Temporomandibular Disorder (ED) Additional Instructions: Please return to the Emergency Department if symptoms worsen or any other concerns. Prescriptions: Ibuprofen [Motrin] 600 mg PO Q8HR PRN #30 tab PRN Reason: Pain Is patient prescribed a controlled substance at d/c from ED?: No Referrals: Fred Pascual MD [Primary Care Provider] - 1-2 days Abe Blanton DDS [STAFF PHYSICIAN] - 1-2 days Time of Disposition: 01:12
--- NOTE | 2019-05-10 01:01 | XR ---
EXAMINATION TYPE: XR mandible complete DATE OF EXAM: 05/10/2019 COMPARISON: NONE HISTORY: Right-sided jaw pain TECHNIQUE: 5 views FINDINGS: Mandibular ring appears intact. Maxilla appears intact. I see no fracture. Temporomandibula r joints appear anatomic. Mandibular condyles are not seen to best advantage on the lateral views. IMPRESSION: Negative limited mandible exam. No fracture seen.
[2019-05-10] MEDS ORDERED: traMADol 50 MG STARTER PACK 3 TAB BTL PO STA (01:12)
[2019-05-10] MEDS ORDERED: IBUPROFEN 600 MG TAB PO STA (01:12)
== END 2019-05-10 01:29 | disposition home or self-care (01) ==
LOC: EC 00:11
DX: M26.601 Right temporomandibular joint disorder, unspecified (principal); E11.9 Type 2 diabetes mellitus without complications; Z88.5 Allergy status to narcotic agent; Z79.4 Long term (current) use of insulin
CPT/HCPCS: 70110; 99283

== ENCOUNTER 2019-07-31 01:46 | Emergency (ER) | payer OTHER ==
[2019-07-31 02:03] LABS: Glucose,Whole Blood 132 mg/dL (75-99)
[2019-07-31] MEDS ORDERED: SODIUM CHLORIDE 0.9% 500 ML 500 ML IV STA (02:07)
[2019-07-31] MEDS ORDERED: ONDANSETRON 4 MG/2 ML VIAL IVP STA (02:07)
[2019-07-31] MEDS ORDERED: SODIUM CHLORIDE 0.9% 1,000 ML IV STA (02:07)
--- NOTE | 2019-07-31 02:11 | ED ---
Nausea/Vomiting/Diarrhea HPI - General Chief complaint: Nausea/Vomiting/Diarrhea Stated complaint: Nausea Time Seen by Provider: 07/31/19 02:00 Source: patient Mode of arrival: ambulatory Limitations: no limitations - History of Present Illness Initial comments: 28-year-old male patient with past medical history significant for type 1 diabetes mellitus presents to the emergency department today for evaluation of vomiting and dizziness. Patient states started vomiting around 7 PM. Patient states he has been unable to keep down any food or fluids since then. States that after vomiting started he developed dizziness. He is having some mild abdominal discomfort but denies any focal pain. He denies any constipation or diarrhea. Denies any recent travel or sick contacts. Denies fevers but states he is having chills. He has had hernia surgery in the past but denies any other abdominal surgeries. Patient denies any recent rash, fever, chills, shortness breath, chest pain, back pain, numbness, tingling, dizziness, weakness, hematuria, dysuria, urinary urgency, urinary frequency, headache, visual changes, or any other complaints. - Related Data Home Medications Medication Instructions Recorded Confirmed Insulin Glulisine [Apidra] See Protocol SQ AC-TID PRN 03/11/16 03/05/18 Insulin Glargine [Lantus] 34 unit SQ HS 03/02/17 03/05/18 Previous Rx's Medication Instructions Recorded Insulin Glargine,Hum.rec.anlog 34 unit SQ HS 20 Days ml 07/03/18 [Lantus Solostar] Mupirocin 2% Oint [Bactroban 2% 1 applic TOPICAL TID 7 Days gm 07/03/18 Oint] Ibuprofen [Motrin] 600 mg PO Q8HR PRN #30 tab 05/10/19 Ondansetron [Zofran ODT] 4 mg PO Q8HR PRN #10 tab 07/31/19 Allergies Allergy/AdvReac Type Severity Reaction Status Date / Time codeine AdvReac Nausea & Verified 07/31/19 01:53 Vomiting Review of Systems ROS Statement: Those systems with pertinent positive or pertinent negative responses have been documented in the HPI. ROS Other: All systems not noted in ROS Statement are negative. 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 Past Psychological History: No Psychological Hx Reported Smoking Status: Never smoker Past Alcohol Use History: Occasional Past Drug Use History: None Reported - Past Family History Mother Family Medical History: Diabetes Mellitus Father Family Medical History: Sleep Apnea/CPAP/BIPAP Additional Family Medical History / Comment(s): severe alberto at 12, hepatitis C General Exam Limitations: no limitations General appearance: alert, in no apparent distress, other (this is a well- developed, well-nourished adult male patient in no acute distress.) Eye exam: Present: normal appearance, PERRL, EOMI. Absent: scleral icterus, conjunctival injection, periorbital swelling ENT exam: Present: normal exam, normal oropharynx, mucous membranes moist Respiratory exam: Present: normal lung sounds bilaterally. Absent: respiratory distress, wheezes, rales, rhonchi, stridor Cardiovascular Exam: Present: regular rate, normal rhythm, normal heart sounds. Absent: systolic murmur, diastolic murmur, rubs, gallop, clicks GI/Abdominal exam: Present: soft, normal bowel sounds. Absent: distended, tenderness, guarding, rebound, rigid Neurological exam: Present: alert, oriented X3, CN II-XII intact Psychiatric exam: Present: normal affect, normal mood Skin exam: Present: warm, dry, intact, normal color. Absent: rash Course Vital Signs 07/31/19 07/31/19 01:50 03:00 Temperature 98.8 F 99 F Pulse Rate 106 H 83 Respiratory 18 17 Rate Blood Pressure 103/56 114/64 O2 Sat by Pulse 100 99 Oximetry Medical Decision Making - Medical Decision Making 28-year-old male patient presents to the emergency department today for evaluation of vomiting. Physical examination is unremarkable. Abdomen is soft and nontender. Patient does have type 1 diabetes, blood sugars are in the 130s. Patient was given IV fluids and Zofran. Upon reevaluation does report improvement of symptoms. He'll be discharged home to follow-up with his primary care physician for recheck in 1-2 days. Return parameters were discussed in detail. He verbalizes understanding and agrees with this plan. - Lab Data Result diagrams: 07/31/19 02:02 07/31/19 02:02 Lab Results 07/31/19 07/31/19 07/31/19 Range/Units 01:50 02:02 02:02 WBC 10.6 (3.8-10.6) k/uL RBC 5.17 (4.30-5.90) m/uL Hgb 15.7 (13.0-17.5) gm/dL Hct 46.8 (39.0-53.0) % MCV 90.6 (80.0-100.0) fL MCH 30.3 (25.0-35.0) pg MCHC 33.4 (31.0-37.0) g/dL RDW 11.6 (11.5-15.5) % Plt Count 290 (150-450) k/uL Neutrophils % 83 % Lymphocytes % 9 % Monocytes % 5 % Eosinophils % 2 % Basophils % 0 % Neutrophils # 8.8 H (1.3-7.7) k/uL Lymphocytes # 1.0 (1.0-4.8) k/uL Monocytes # 0.5 (0-1.0) k/uL Eosinophils # 0.2 (0-0.7) k/uL Basophils # 0.0 (0-0.2) k/uL Sodium (137-145) mmol/L Potassium (3.5-5.1) mmol/L Chloride (98-107) mmol/L Carbon Dioxide (22-30) mmol/L Anion Gap mmol/L BUN (9-20) mg/dL Creatinine (0.66-1.25) mg/dL Est GFR (CKD-EPI)AfAm (>60 ml/min/1.73 sqM) Est GFR (CKD-EPI)NonAf (>60 ml/min/1.73 sqM) Glucose (74-99) mg/dL POC Glucose (mg/dL) 132 H (75-99) mg/dL POC Glu Lifter/Driver ID Jamaican, Liz Calcium (8.4-10.2) mg/dL Total Bilirubin (0.2-1.3) mg/dL AST (17-59) U/L ALT (4-49) U/L Alkaline Phosphatase (38-126) U/L Total Protein (6.3-8.2) g/dL Albumin (3.5-5.0) g/dL Lipase (23-300) U/L Urine Color Yellow Urine Appearance Clear (Clear) Urine pH 5.5 (5.0-8.0) Ur Specific Kenna 1.025 (1.001-1.035) Urine Protein Trace H (Negative) Urine Glucose (UA) Trace H (Negative) Urine Ketones 2+ H (Negative) Urine Blood Negative (Negative) Urine Nitrite Negative (Negative) Urine Bilirubin Negative (Negative) Urine Urobilinogen <2.0 (<2.0) mg/dL Ur Leukocyte Esterase Negative (Negative) 07/31/19 Range/Units 02:02 WBC (3.8-10.6) k/uL RBC (4.30-5.90) m/uL Hgb (13.0-17.5) gm/dL Hct (39.0-53.0) % MCV (80.0-100.0) fL MCH (25.0-35.0) pg MCHC (31.0-37.0) g/dL RDW (11.5-15.5) % Plt Count (150-450) k/uL Neutrophils % % Lymphocytes % % Monocytes % % Eosinophils % % Basophils % % Neutrophils # (1.3-7.7) k/uL Lymphocytes # (1.0-4.8) k/uL Monocytes # (0-1.0) k/uL Eosinophils # (0-0.7) k/uL Basophils # (0-0.2) k/uL Sodium 138 (137-145) mmol/L Potassium 3.9 (3.5-5.1) mmol/L Chloride 102 (98-107) mmol/L Carbon Dioxide 26 (22-30) mmol/L Anion Gap 10 mmol/L BUN 17 (9-20) mg/dL Creatinine 0.78 (0.66-1.25) mg/dL Est GFR (CKD-EPI)AfAm >90 (>60 ml/min/1.73 sqM) Est GFR (CKD-EPI)NonAf >90 (>60 ml/min/1.73 sqM) Glucose 138 H (74-99) mg/dL POC Glucose (mg/dL) (75-99) mg/dL POC Glu Lifter/Driver ID Calcium 9.7 (8.4-10.2) mg/dL Total Bilirubin 0.9 (0.2-1.3) mg/dL AST 27 (17-59) U/L ALT 20 (4-49) U/L Alkaline Phosphatase 80 (38-126) U/L Total Protein 7.1 (6.3-8.2) g/dL Albumin 4.4 (3.5-5.0) g/dL Lipase 48 (23-300) U/L Urine Color Urine Appearance (Clear) Urine pH (5.0-8.0) Ur Specific Kenna (1.001-1.035) Urine Protein (Negative) Urine Glucose (UA) (Negative) Urine Ketones (Negative) Urine Blood (Negative) Urine Nitrite (Negative) Urine Bilirubin (Negative) Urine Urobilinogen (<2.0) mg/dL Ur Leukocyte Esterase (Negative) - Radiology Data Radiology results: report reviewed, image reviewed KUB x-ray was obtained. Report was reviewed in its entirety. Impression by Dr. Garcia shows nonacute abdomen. No change. Disposition Clinical Impression: Nausea & vomiting Disposition: HOME SELF-CARE Condition: Good Instructions (If sedation given, give patient instructions): Acute Nausea and Vomiting (ED) Additional Instructions: Start with clear liquid diet and advance as tolerated. Monitor blood sugars closely. Take medications as directed. Return to the emergency department immediately for any new, worsening, or concerning symptoms. Prescriptions: Ondansetron [Zofran ODT] 4 mg PO Q8HR PRN #10 tab PRN Reason: Nausea Is patient prescribed a controlled substance at d/c from ED?: No Referrals: Fred Pascual MD [Primary Care Provider] - 1-2 days Time of Disposition: 03:12
[2019-07-31 02:27] LABS: Basophils % (A) 0 %; Eosinophils # (A) 0.2 k/uL (0-0.7); Eosinophils % (A) 2 %; HCT 46.8 % (39.0-53.0); HGB 15.7 gm/dL (13.0-17.5); Lymphocytes % (A) 9 %; MCH 30.3 pg (25.0-35.0); MCHC 33.4 g/dL (31.0-37.0); MCV 90.6 fL (80.0-100.0); Mean Platelet Volume 7.7; Monocytes # (A) 0.5 k/uL (0-1.0); Monocytes % (A) 5 %; Neutrophils # (A) 8.8 k/uL (1.3-7.7); Neutrophils % (A) 83 %; Platelet Count 290 k/uL (150-450); RBC 5.17 m/uL (4.30-5.90); RDW 11.6 % (11.5-15.5); WBC 10.6 k/uL (3.8-10.6)
[2019-07-31 02:27] LABS: Appearance,Urine Clear (Clear); Bilirubin,Urine Negative (Negative); Blood,Urine Negative (Negative); Color,Urine Yellow; Glucose,Urine (UA) Trace (Negative); Ketones,Urine 2+ (Negative); Leukocyte Esterase,Urine Negative (Negative); Nitrite,Urine Negative (Negative); PH, Urine 5.5 (5.0-8.0); Protein,Urine Trace (Negative); Specific Gravity,Urine 1.025 (1.001-1.035); Urobilinogen,Urine <2.0 mg/dL (<2.0)
[2019-07-31 02:41] LABS: ALT 20 U/L (4-49); AST 27 U/L (17-59); African American GFR (CKD) >90 (>60 ml/min/1.73 sqM); Albumin 4.4 g/dL (3.5-5.0); Alkaline Phosphatase 80 U/L (38-126); Anion Gap 10 mmol/L; Blood Urea Nitrogen 17 mg/dL (9-20); Calcium 9.7 mg/dL (8.4-10.2); Carbon Dioxide 26 mmol/L (22-30); Chloride 102 mmol/L (98-107); Glucose 138 mg/dL (74-99); Non-African American GFR(CKD) >90 (>60 ml/min/1.73 sqM); Potassium 3.9 mmol/L (3.5-5.1); Sodium 138 mmol/L (137-145); Total Bilirubin 0.9 mg/dL (0.2-1.3); Total Protein 7.1 g/dL (6.3-8.2)
--- NOTE | 2019-07-31 03:03 | XR ---
EXAMINATION TYPE: XR KUB DATE OF EXAM: 07/31/2019 COMPARISON: 03/11/2016 HISTORY: Abdominal pain TECHNIQUE: 2 views upright FINDINGS: There is no sign of intestinal obstruction or pneumoperitoneum. Fecal pattern is normal. Th ere is no sign of a mass. There are no pathologic calcifications over the kidneys. Lung bases are kushal ar. There is slight lumbar levoscoliosis. IMPRESSION: Nonacute abdomen. No change.
[2019-07-31] MEDS ORDERED: ONDANSETRON 4 MG ODT STARTER PACK 2 TAB BTL PO STA (03:12)
[2019-07-31 03:19] VITALS: BP 114/64; PULSE 83; RESP 17; TEMP 99
== END 2019-07-31 03:29 | disposition home or self-care (01) ==
LOC: EC 01:46
DX: R11.2 Nausea with vomiting, unspecified (principal); R42 Dizziness and giddiness; R68.83 Chills (without fever); E10.9 Type 1 diabetes mellitus without complications; Z98.890 Other specified postprocedural states; Z79.4 Long term (current) use of insulin; Z88.5 Allergy status to narcotic agent
CPT/HCPCS: 36415; 80053; 83690; 85025; 81003; 74018; 99284; 96374; 96361; J2405; S0119

== ENCOUNTER → 2020-11-08 | Outpatient (CLI) | payer OTHER ==
--- NOTE | 2020-11-08 22:10 | MR ---
Result: Clinical Indication: Right hip pain. Comparison: None available. Technique: Multiplanar multisequence MR examination of the right hip with coronal and axial sequence s including the pelvis was performed without intravenous or intra-articular contrast administration. Findings: There is no significant bone marrow abnormality, acute fracture or dislocation. No osteonecrosis of t he femoral heads. There is small right hip joint effusion. Otherwise the right hip joint space is grossly preserved. No discrete labral tear on this nonarthrogram study. Hamstring origins, iliopsoas and gluteal tendons are intact. There is asymmetric mild edema within th e trochanteric bursa. No significant iliopsoas bursitis. Impression: Mild edema within the right enteric fossa, correlate for possible bursitis. Small right hip joint effusion, may be reactive. Otherwise no significant abnormality of the MRI.
== END | disposition home or self-care (01) ==
LOC: RADMRIMAIN 07:30
PROVIDERS: ATTEND Orthopaedic Surgery Sports Medicine
DX: S76.011A Strain of muscle, fascia and tendon of right hip, initial encounter (principal); M25.451 Effusion, right hip

== ENCOUNTER → 2022-05-18 | Outpatient (CLI) | payer OTHER ==
--- NOTE | 2022-05-18 18:14 | CT ---
EXAMINATION TYPE: CT brain wo con CT DLP: 1162.80 mGycm, Automated exposure control for dose reduction was used. DATE OF EXAM: 05/18/2022 5:05 PM COMPARISON: CT brain from 04/03/2019.. CLINICAL INDICATION:Male, 31 years old with history of S06.2X9S DIFFUSE TBI W LOC OF UNSP DURATION, S EQUE, hx of concussion and skull fx TECHNIQUE: Brain: Axial CT images of the brain were obtained with coronal and sagittal reformats created and rev iewed. Contrast used: None. Oral contrast used: None. FINDINGS: Brain: Extra-axial spaces: No abnormal fluid collections. Ventricular system: Within normal limits Cerebral parenchyma: Suspected encephalomalacia changes of the right frontal and temporal lobe No acu te intraparenchymal hemorrhage or mass effect. The sheppard-white junction is well differentiated. Cerebellum: Unremarkable. Mass effect: No evidence of midline shift. Intracranial vasculature: unremarkable Soft tissues: Normal. Calvarium/osseous structures: No depressed skull fracture. Paranasal sinuses and mastoid air cells: Mild scattered paranasal sinus disease. Visualized orbits: Orbital contents are intact. IMPRESSION: 1. No acute intracranial process. 2. Encephalomalacia changes of the right frontal and right temporal lobes. These findings are new fr om 09/11/2018. Findings compatible with history of traumatic brain injury or skull fracture. Consider further evaluation with MRI.
== END | disposition home or self-care (01) ==
LOC: RADCTMAIN 16:21
PROVIDERS: ATTEND Neurological Surgery
DX: G31.9 Degenerative disease of nervous system, unspecified (principal)
CPT/HCPCS: 70450

== ENCOUNTER 2022-12-09 18:17 | Emergency (ER) | payer OTHER ==
[2022-12-09 19:16] VITALS: PULSE 84
[2022-12-09] MEDS ORDERED: ACETAMINOPHEN TAB 500 MG TAB PO STA (20:08)
--- NOTE | 2022-12-09 20:25 | XR ---
EXAMINATION TYPE: XR wrist complete LT DATE OF EXAM: 12/09/2022 8:14 PM INDICATION: Patient age:Male; 32 years old; Reason for study: pain; PHH. COMPARISON: 02/21/2013 TECHNIQUE: left wrist was examined in the. Frontal, navicular, lateral, and oblique. FINDINGS: There is a calcification of the distal right ulnar styloid process. No additional fractures are definitively visualized . No joint dislocation, or joint effusion. Mild soft tissue swelling is present. IMPRESSION: 1. Injury to the ulnar styloid process, correlate with point tenderness for acute injury. 2. Mild soft tissue swelling.
--- NOTE | 2022-12-09 21:11 | ED ---
General Adult HPI - General Chief complaint: Extremity Injury, Upper Stated complaint: L wrist injury Time Seen by Provider: 12/09/22 20:00 Source: patient, RN notes reviewed, old records reviewed Mode of arrival: ambulatory Limitations: no limitations - History of Present Illness Initial comments: Patient is a 32-year-old male with past medical history remarkable for diabetes presents here with Department complaining of left wrist pain. 2 days ago was playing basketball and he hurt his left wrist. Uncertain what he did to it exactly. Complaining primarily of pain over the posterior aspect of the left wrist, mid wrist as well as lateral wrist. Denies any sensory deficits. Able to move all fingers without issue. Pain with flexion and extension of the wrist. No other acute complaints. Presents for further evaluation at this time. - Related Data Home Medications Medication Instructions Recorded Confirmed Insulin Glulisine [Apidra] See Protocol SQ AC-TID PRN 03/11/16 03/05/18 Insulin Glargine [Lantus Vial] 34 unit SQ HS 03/02/17 03/05/18 Previous Rx's Medication Instructions Recorded Insulin Glargine,Hum.rec.anlog 34 unit SQ HS 20 Days ml 07/03/18 [Lantus Solostar] Mupirocin 2% Oint [Bactroban 2% 1 applic TOPICAL TID 7 Days gm 07/03/18 Oint] Ibuprofen [Motrin] 600 mg PO Q8HR PRN #30 tab 05/10/19 Ondansetron [Zofran ODT] 4 mg PO Q8HR PRN #10 tab 07/31/19 Allergies Allergy/AdvReac Type Severity Reaction Status Date / Time codeine AdvReac Nausea & Verified 12/09/22 19:16 Vomiting Review of Systems ROS Statement: Those systems with pertinent positive or pertinent negative responses have been documented in the HPI. Review of Systems: CONST: Denies fever EYES: Denies blurry vision ENT: Denies nasal congestion C/V: Denies Chest pain RESP: Denies shortness of breath GI: Denies abdominal pain : Denies dysuria SKIN: Denies rash. MSK: Endorses left wrist pain NEURO: Denies headache ROS Other: All systems not noted in ROS Statement are negative. 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 Past Psychological History: No Psychological Hx Reported Smoking Status: Never smoker Past Alcohol Use History: Occasional Past Drug Use History: None Reported - Past Family History Mother Family Medical History: Diabetes Mellitus Father Family Medical History: Sleep Apnea/CPAP/BIPAP Additional Family Medical History / Comment(s): severe alberto at 12, hepatitis C General Exam - General Exam Comments Initial Comments: General: Appears in no acute distress. HEAD: Normal with no signs of head trauma. EYES: EOMI. ENT: Hearing grossly intact. RESPIRATORY: No respiratory distress. C/V: Regular rate and rhythm. ABD: Abdomen is nondistended. EXT: Decreased range of motion of the left wrist secondary to pain. Primary tenderness over the posterior aspect of the left wrist in the mid wrist as well as the ulnar posterior aspect. No snuffbox tenderness to palpation. Normal finger approximation and movement. He will make a fist without issue. Normal flexion and extension at the elbow. Mild edema. SKIN: No rashes or lesions observed on exposed skin. NEURO: Alert and oriented. Limitations: no limitations Course Vital Signs 12/09/22 19:13 Temperature 98.3 F Pulse Rate 84 Respiratory 20 Rate Blood Pressure 127/75 O2 Sat by Pulse 98 Oximetry Procedures - Orthopedic Splinting/Casting Injury #1 Side: left Upper Extremity Injury Location: wrist Upper Extremity Immobilizer: ulnar gutter Additional Comments: Neurovascularly intact following splinting. Medical Decision Making - Medical Decision Making Was pt. sent in by a medical professional or institution (, PA, RN UTILIZATION MANAGEMENT [facility], urgent care, hospital, or fpc...) When possible be specific @ -No Did you speak to anyone other than the patient for history (EMS, parent, family, police, friend...)? What history was obtained from this source @ -No Did you review nursing and triage notes (agree or disagree)? Why? @ -I reviewed and agree with nursing and triage notes Were old charts reviewed (outside hosp., previous admission, EMS record, old EKG, old radiological studies, urgent care reports/EKG's, fpc records)? Report findings @ -No old charts were reviewed Differential Diagnosis (chest pain, altered mental status, abdominal pain women, abdominal pain men, vaginal bleeding, weakness, fever, dyspnea, syncope, headache, dizziness, GI bleed, back pain, seizure, CVA, palpatations, mental health, musculoskeletal)? @ -Wrist pain, Wrist sprain/strain, wrist fracture. This list isn't all inclusive. EKG interpreted by me (3pts min.). @ -None done X-rays interpreted by me (1pt min.). @ -Concern for left ulnar styloid process fracture. No other acute findings. CT interpreted by me (1pt min.). @ -None done U/S interpreted by me (1pt. min.). @ -None done What testing was considered but not performed or refused? (CT, X-rays, U/S, labs)? Why? @ -None What meds were considered but not given or refused? Why? @ -None Did you discuss the management of the patient with other professionals (professionals i.e. , PA, RN UTILIZATION MANAGEMENT [facility], lab, RT, psych nurse, social studies teacher, sound ranging crewmember, teacher, morale officer, case picker)? Give summary @ -No Was smoking cessation discussed for >3mins.? @ -No Was critical care preformed (if so, how long)? @ -No Were there social determinants of health that impacted care today? How? (Homelessness, low income, unemployed, alcoholism, drug addiction, transportation, low edu. Level, literacy, decrease access to med. care, [facility], rehab)? @ -No Was there de-escalation of care discussed even if they declined (Discuss DNR or withdrawal of care, Hospice)? DNR status @ -No What co-morbidities impacted this encounter? (DM, HTN, Smoking, COPD, CAD, Cancer, CVA, ARF, Chemo, Hep., AIDS, mental health diagnosis, sleep apnea, morbid obesity)? @ -None Was patient admitted / discharged? Hospital course, mention meds given and route, prescriptions, significant lab abnormalities, going to OR and other pertinent info. @ -Based on the patient's presentation and physical exam, concern for injury of the left wrist. Patient given Tylenol for pain control. Vital signs within acceptable limits. Neurovascularly intact in the left wrist and hand. X-ray shows a possible injury to the ulnar styloid process. No other acute findings. I updated the patient. He will be splinted in an ulnar gutter splint. He tolerated the procedure well. Neurovascular intact following splinting. Will be given discharged to follow up with orthopedic surgery. He does have a surgeon that he saw previously which she may follow up with instead. He was in agreement with this plan. Discussed rest, icing, [id number] analgesic medications for home. Strict return precautions discussed. I instructed the patient to follow up with their PCP in the next 1-3 days. I provided contact information for follow up with orthopedic. I explained that the patient should return to the emergency department if they experience any worsening symptoms. Strict return precautions were discussed with the patient. The patient expressed understanding of these instructions. I answered all questions that the patient had. The patient was discharged home in good condition with their prescriptions and follow up information. Undiagnosed new problem with uncertain prognosis? @ -No Drug Therapy requiring intensive monitoring for toxicity (Heparin, Nitro, Insulin, Cardizem)? @ -No Were any procedures done? @ -No Diagnosis/symptom? @ -Left wrist injury, left ulnar styloid process fracture Acute, or Chronic, or Acute on Chronic? @ -Acute Uncomplicated (without systemic symptoms) or Complicated (systemic symptoms)? @ -Uncomplicated Side effects of treatment? @ -No Exacerbation, Progression, or Severe Exacerbation? @ -No Poses a threat to life or bodily function? How? (Chest pain, [place], [place], pneumonia, PE, COPD, DKA, ARF, appy, cholecystitis, CVA, Diverticulitis, Homicidal, Suicidal, threat to staff... and all critical care pts) @ -No Disposition Clinical Impression: Left wrist sprain, Ulna styloid fracture, closed Disposition: HOME SELF-CARE Condition: Good Instructions (If sedation given, give patient instructions): Wrist Injury (ED) Is patient prescribed a controlled substance at d/c from ED?: No Referrals: Fred Pascual MD [Primary Care Provider] - 1-2 days Myra Morrison DO [Doctor of Osteopathic Medicine] - 1-2 days Time of Disposition: 20:50
[2022-12-09 21:23] VITALS: BP 123/77; RESP 16; TEMP 98.7
== END 2022-12-09 21:21 | disposition home or self-care (01) ==
LOC: EC 18:17
DX: S52.615A Nondisplaced fracture of left ulna styloid process, initial encounter for closed fracture (principal); S63.502A Unspecified sprain of left wrist, initial encounter; E11.9 Type 2 diabetes mellitus without complications; Z79.4 Long term (current) use of insulin; Z88.5 Allergy status to narcotic agent; X58.XXXA Exposure to other specified factors, initial encounter; Y93.67 Activity, basketball
CPT/HCPCS: 29125; 99283

== ENCOUNTER 2022-12-12 11:00 | Emergency (ER) | payer OTHER ==
[2022-12-12 11:18] LABS: Glucose,Whole Blood 294 mg/dL (70-110)
[2022-12-12 11:23] VITALS: RESP 16
--- NOTE | 2022-12-12 11:56 | ED ---
General Adult HPI - General Chief complaint: Recheck/Abnormal Lab/Rx Stated complaint: Rx Refill Time Seen by Provider: 12/12/22 11:18 Source: patient, RN notes reviewed Mode of arrival: ambulatory Limitations: no limitations - History of Present Illness Initial comments: 32-year-old male presents emergency Department with chief complaint of "I ran out of my medications." He states that he ran out this morning. He is a type I diabetic and takes Lantus and NovoLog. He states that he called his primary care physician last night to send over his medications but he did not receive them. Denies any other complaints at this time. - Related Data Home Medications Medication Instructions Recorded Confirmed Insulin Glulisine [Apidra] See Protocol SQ AC-TID PRN 03/11/16 03/05/18 Insulin Glargine [Lantus Vial] 34 unit SQ HS 03/02/17 03/05/18 Previous Rx's Medication Instructions Recorded Insulin Glargine,Hum.rec.anlog 34 unit SQ HS 20 Days ml 07/03/18 [Lantus Solostar] Mupirocin 2% Oint [Bactroban 2% 1 applic TOPICAL TID 7 Days gm 07/03/18 Oint] Ibuprofen [Motrin] 600 mg PO Q8HR PRN #30 tab 05/10/19 Ondansetron [Zofran ODT] 4 mg PO Q8HR PRN #10 tab 07/31/19 Insulin Aspart [NovoLOG Flexpen] 10 units SQ AC-TID #15 ml 12/12/22 Insulin Glargine,Hum.rec.anlog 25 units SQ DAILY #15 ml 12/12/22 [Lantus Solostar Pen] Allergies Allergy/AdvReac Type Severity Reaction Status Date / Time codeine AdvReac Nausea & Verified 12/12/22 11:13 Vomiting Review of Systems ROS Statement: Those systems with pertinent positive or pertinent negative responses have been documented in the HPI. ROS Other: All systems not noted in ROS Statement are negative. 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 Past Psychological History: No Psychological Hx Reported Smoking Status: Never smoker Past Alcohol Use History: Occasional Past Drug Use History: None Reported - Past Family History Mother Family Medical History: Diabetes Mellitus Father Family Medical History: Sleep Apnea/CPAP/BIPAP Additional Family Medical History / Comment(s): severe alberto at 12, hepatitis C General Exam Limitations: no limitations General appearance: alert, in no apparent distress Head exam: Present: atraumatic, normocephalic, normal inspection Eye exam: Present: normal appearance ENT exam: Present: normal exam, mucous membranes moist Respiratory exam: Present: normal lung sounds bilaterally. Absent: respiratory distress, wheezes, rales, rhonchi, stridor Cardiovascular Exam: Present: regular rate, normal rhythm, normal heart sounds. Absent: systolic murmur, diastolic murmur, rubs, gallop, clicks GI/Abdominal exam: Present: soft, normal bowel sounds. Absent: distended, tenderness, guarding, rebound, rigid Psychiatric exam: Present: normal affect, normal mood Skin exam: Present: warm, dry, intact, normal color. Absent: rash Course Vital Signs 12/12/22 12/12/22 12/12/22 11:12 11:21 12:39 Temperature 98.2 F 97.9 F Pulse Rate 81 79 Respiratory 20 16 16 Rate Blood Pressure 120/72 108/66 O2 Sat by Pulse 99 99 Oximetry Medical Decision Making - Medical Decision Making Was pt. sent in by a medical professional or institution (, PA, VACUUM EXTRACTOR OPERATOR, urgent care, hospital, or [facility]...) When possible be specific @ -No Did you speak to anyone other than the patient for history (EMS, parent, family, police, friend...)? What history was obtained from this source @ -No Did you review nursing and triage notes (agree or disagree)? Why? @ -I reviewed and agree with nursing and triage notes Were old charts reviewed (outside hosp., previous admission, EMS record, old EKG, old radiological studies, urgent care reports/EKG's, [facility] records)? Report findings @ -No old charts were reviewed Differential Diagnosis (chest pain, altered mental status, abdominal pain women, abdominal pain men, vaginal bleeding, weakness, fever, dyspnea, syncope, headache, dizziness, GI bleed, back pain, seizure, CVA, palpatations, mental h ealth, musculoskeletal)? @ -not applicable EKG interpreted by me (3pts min.). @ -None X-rays interpreted by me (1pt min.). @ -None done CT interpreted by me (1pt min.). @ -None done U/S interpreted by me (1pt. min.). @ -None done What testing was considered but not performed or refused? (CT, X-rays, U/S, labs)? Why? @ -None What meds were considered but not given or refused? Why? @ -None Did you discuss the management of the patient with other professionals (professionals i.e. Dr., PA, VACUUM EXTRACTOR OPERATOR, lab, RT, psych nurse, social worker clinical, director video, teacher, real estate officer, corrections caseworker)? Give summary @ -No Was smoking cessation discussed for >3mins.? @ -No Was critical care preformed (if so, how long)? @ -No Were there social determinants of health that impacted care today? How? (Homelessness, low income, unemployed, alcoholism, drug addiction, transportation, low edu. Level, literacy, decrease access to med. care, snf, rehab)? @ -No Was there de-escalation of care discussed even if they declined (Discuss DNR or withdrawal of care, Hospice)? DNR status @ -No What co-morbidities impacted this encounter? (DM, HTN, Smoking, COPD, CAD, Cancer, CVA, ARF, Chemo, Hep., AIDS, mental health diagnosis, sleep apnea, morbid obesity)? @ -None Was patient admitted / discharged? Hospital course, mention meds given and route, prescriptions, significant lab abnormalities, going to OR and other pertinent info. @ -Discharged. Patient presented to the emergency department for medication refill. Patient states that he ran out of his insulin this morning. He states that he called his primary care yesterday and was told the medications were sent but he was unable to receive them. [facility] pharmacy was called and prescription for 1 freestyle arturo 3 was sent. Lantus and novolog were sent electronically. Undiagnosed new problem with uncertain prognosis? @ -No Drug Therapy requiring intensive monitoring for toxicity (Heparin, Nitro, Insulin, Cardizem)? @ -No Were any procedures done? @ -No Diagnosis/symptom? @ -medication refill Acute, or Chronic, or Acute on Chronic? @ -acute Uncomplicated (without systemic symptoms) or Complicated (systemic symptoms)? @ -uncomplicated Side effects of treatment? @ -No Exacerbation, Progression, or Severe Exacerbation? @ -No Poses a threat to life or bodily function? How? (Chest pain, [place], [place], pneumonia, PE, COPD, DKA, ARF, appy, cholecystitis, CVA, Diverticulitis, Homicidal, Suicidal, threat to staff... and all critical care pts) @ -No - Lab Data Lab Results 12/12/22 Range/Units 11:17 POC Glucose (mg/dL) 294 H (70-110) mg/dL POC Glu Manager Application ID Juwan Frost Disposition Clinical Impression: Encounter for medication refill Disposition: HOME SELF-CARE Condition: Stable Additional Instructions: Please return to the Emergency Department if symptoms worsen or any other concerns. Prescriptions: Insulin Glargine,Hum.rec.anlog [Lantus Solostar Pen] 25 units SQ DAILY #15 ml Insulin Aspart [NovoLOG Flexpen] 10 units SQ AC-TID #15 ml Is patient prescribed a controlled substance at d/c from ED?: No Referrals: Fred Pascual MD [Primary Care Provider] - 1-2 days Time of Disposition: 12:36
[2022-12-12 12:41] VITALS: BP 108/66; PULSE 79; TEMP 97.9
== END 2022-12-12 12:41 | disposition home or self-care (01) ==
LOC: EC 11:00
DX: Z76.0 Encounter for issue of repeat prescription (principal); E10.9 Type 1 diabetes mellitus without complications; Z88.5 Allergy status to narcotic agent
CPT/HCPCS: 36415; 99282

== ENCOUNTER 2022-12-27 12:48 | Emergency (ER) | payer OTHER ==
[2022-12-27 12:53] VITALS: BP 105/71; PULSE 77; RESP 20; TEMP 97.8
[2022-12-27 12:54] LABS: Glucose,Whole Blood 207 mg/dL (70-110)
--- NOTE | 2022-12-27 13:16 | ED ---
Recheck HPI - General Chief Complaint: Recheck/Abnormal Lab/Rx Stated Complaint: NEEDS DIABETIC MEDS Time Seen by Provider: 12/27/22 13:08 Source: patient Mode of arrival: ambulatory Limitations: no limitations - History of Present Illness Initial Comments: Patient is a 32-year-old female presenting for medication refill. Patient has run out of his insulin needs a freestyle Erinn 3. He states that his PCP no longer takes his insurance and he needs to switch to a new one. He is asymptomatic at this time. Blood sugar in triage is 207. - Related Data Home Medications Medication Instructions Recorded Confirmed Insulin Glulisine [Apidra] See Protocol SQ AC-TID PRN 03/11/16 03/05/18 Insulin Glargine [Lantus Vial] 34 unit SQ HS 03/02/17 03/05/18 Previous Rx's Medication Instructions Recorded Insulin Glargine,Hum.rec.anlog 34 unit SQ HS 20 Days ml 07/03/18 [Lantus Solostar] Mupirocin 2% Oint [Bactroban 2% 1 applic TOPICAL TID 7 Days gm 07/03/18 Oint] Ibuprofen [Motrin] 600 mg PO Q8HR PRN #30 tab 05/10/19 Ondansetron [Zofran ODT] 4 mg PO Q8HR PRN #10 tab 07/31/19 Insulin Aspart [NovoLOG Flexpen] 10 units SQ AC-TID #15 ml 12/12/22 Insulin Glargine,Hum.rec.anlog 25 units SQ DAILY #15 ml 12/12/22 [Lantus Solostar Pen] Insulin Aspart [NovoLOG] 1 units SQ DIRECTED 30 Days #3 12/27/22 pen Insulin Glargine,Hum.rec.anlog 33 units SQ DAILY #4 pen 12/27/22 [Lantus Solostar Pen] Allergies Allergy/AdvReac Type Severity Reaction Status Date / Time codeine AdvReac Nausea & Verified 12/12/22 11:13 Vomiting Review of Systems ROS Statement: Those systems with pertinent positive or pertinent negative responses have been documented in the HPI. ROS Other: All systems not noted in ROS Statement are negative. 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 Past Psychological History: No Psychological Hx Reported Smoking Status: Never smoker Past Alcohol Use History: Occasional Past Drug Use History: None Reported - Past Family History Mother Family Medical History: Diabetes Mellitus Father Family Medical History: Sleep Apnea/CPAP/BIPAP Additional Family Medical History / Comment(s): severe alberto at 12, hepatitis C General Exam Limitations: no limitations General appearance: alert, in no apparent distress Head exam: Present: atraumatic, normocephalic, normal inspection Eye exam: Present: normal appearance, EOMI. Absent: scleral icterus, periorbital swelling Neck exam: Present: normal inspection, full ROM Respiratory exam: Present: normal lung sounds bilaterally. Absent: respiratory distress, wheezes, rales, rhonchi, stridor Cardiovascular Exam: Present: regular rate, normal rhythm, normal heart sounds. Absent: systolic murmur, diastolic murmur, rubs, gallop, clicks Neurological exam: Present: alert, oriented X3, CN II-XII intact Psychiatric exam: Present: normal affect, normal mood Skin exam: Present: warm, dry, intact, normal color. Absent: rash Course Vital Signs 12/27/22 12:51 Temperature 97.8 F Pulse Rate 77 Respiratory 20 Rate Blood Pressure 105/71 O2 Sat by Pulse 97 Oximetry Medical Decision Making - Medical Decision Making Was pt. sent in by a medical professional or institution (, PA, YARD SPECIALIST, urgent care, hospital, or long term...) When possible be specific @ -No Did you speak to anyone other than the patient for history (EMS, parent, family, police, friend...)? What history was obtained from this source @ -No Did you review nursing and triage notes (agree or disagree)? Why? @ -I reviewed and agree with nursing and triage notes Were old charts reviewed (outside hosp., previous admission, EMS record, old EKG, old radiological studies, urgent care reports/EKG's, long term records)? Report findings @ -No old charts were reviewed Differential Diagnosis (chest pain, altered mental status, abdominal pain women, abdominal pain men, vaginal bleeding, weakness, fever, dyspnea, syncope, headache, dizziness, GI bleed, back pain, seizure, CVA, palpatations, mental health, musculoskeletal)? @ -not applicable EKG interpreted by me (3pts min.). @ -As above X-rays interpreted by me (1pt min.). @ -None done CT interpreted by me (1pt min.). @ -None done U/S interpreted by me (1pt. min.). @ -None done What testing was considered but not performed or refused? (CT, X-rays, U/S, labs)? Why? @ -None What meds were considered but not given or refused? Why? @ -None Did you discuss the management of the patient with other professionals (professionals i.e. , PA, YARD SPECIALIST, lab, RT, psych nurse, nursing home social worker, mica spreader, teacher, armored vehicle officer, case fitter)? Give summary @ -No Was smoking cessation discussed for >3mins.? @ -No Was critical care preformed (if so, how long)? @ -No Were there social determinants of health that impacted care today? How? (Homelessness, low income, unemployed, alcoholism, drug addiction, transportation, low edu. Level, literacy, decrease access to med. care, shelter, rehab)? @ -No Was there de-escalation of care discussed even if they declined (Discuss DNR or withdrawal of care, Hospice)? DNR status @ -No What co-morbidities impacted this encounter? (DM, HTN, Smoking, COPD, CAD, Ca ncer, CVA, ARF, Chemo, Hep., AIDS, mental health diagnosis, sleep apnea, morbid obesity)? @ -Diabetes Was patient admitted / discharged? Hospital course, mention meds given and route, prescriptions, significant lab abnormalities, going to OR and other pertinent info. @ -Patient is a 32-year-old male presenting for refills on his insulin. In the process of getting a new PCP. He is asymptomatic with no other complaints at this time. Blood glucose is 207. Patient is on Lantus 33 units at night and NovoLog 1 unit per 10 g of carbs, every 40 over 180 is 1 unit. Also needs freestyle erinn 3. Prescription is sent to pharmacy for Lantus and NovoLog and pharmacy called to place order for freestyle erinn 3. Patient is instructed to ensure that he makes a point with a new PCP for further refills. Follow-up with PCP. Report back to ER with any new or worsening symptoms. Discussed return parameters and answered all questions. Patient conveyed verbal understanding and agreed to the plan. I discussed this case in detail with my attending Dr. Jang Undiagnosed new problem with uncertain prognosis? @ -No Drug Therapy requiring intensive monitoring for toxicity (Heparin, Nitro, Insulin, Cardizem)? @ -No Were any procedures done? @ -No Diagnosis/symptom? @ -Medication refill Acute, or Chronic, or Acute on Chronic? @ -Acute Uncomplicated (without systemic symptoms) or Complicated (systemic symptoms)? @ -Uncomplicated Side effects of treatment? @ -No Exacerbation, Progression, or Severe Exacerbation? @ -No Poses a threat to life or bodily function? How? (Chest pain, [place], [place], pneumonia, PE, COPD, DKA, ARF, appy, cholecystitis, CVA, Diverticulitis, Homicidal, Suicidal, threat to staff... and all critical care pts) @ -No - Lab Data Lab Results 12/27/22 Range/Units 12:52 POC Glucose (mg/dL) 207 H (70-110) mg/dL POC Glu Junior Electrical Engineer ID Whitney Marquez Disposition Clinical Impression: Medication refill Disposition: HOME SELF-CARE Condition: Good Instructions (If sedation given, give patient instructions): Diabetes and Nutrition (ED) Additional Instructions: Follow-up with PCP. Report back to ER with any new or worsening symptoms. Prescriptions: Insulin Glargine,Hum.rec.anlog [Lantus Solostar Pen] 33 units SQ DAILY #4 pen Insulin Aspart [NovoLOG] 1 units SQ DIRECTED 30 Days #3 pen Is patient prescribed a controlled substance at d/c from ED?: No Referrals: Fred Pascual MD [Primary Care Provider] - 1-2 days Time of Disposition: 13:16
== END 2022-12-27 13:36 | disposition home or self-care (01) ==
LOC: EC 12:48
DX: Z76.0 Encounter for issue of repeat prescription (principal); E10.8 Type 1 diabetes mellitus with unspecified complications; Z79.4 Long term (current) use of insulin; Z88.8 Allergy status to other drugs, medicaments and biological substances
CPT/HCPCS: 36415; 99283